=== PATIENT | male | born 1955 | race Caucasian/White ===

== ENCOUNTER 2016-11-14 08:33 | Day surgery (SDC) | payer OTHER ==
[2016-11-11 14:58] VITALS: BMI 30.7
[2016-11-14] MEDS ORDERED: PROPOFOL 20 ML ONE ×3 (09:18→09:40)
[2016-11-14 10:17] VITALS: TEMP 97.6
[2016-11-14 11:20] LABS: BASOPHIL 0.2 % (0-2.0); EOSINOPHIL 1.1 % (0-4.5); MCH 30.1 pg (25.7-33.7); MCHC 33.4 g/dl (32.0-35.9); MEAN PLT VOLUME 7.8 fl (7.5-11.1); NEUTROPHILS 75.6 % (42.8-82.8); PLATELET COUNT 153 K/MM3 (134-434); WHITE BLOOD COUNT 7.1 K/mm3 (4.0-10.0)
[2016-11-14 11:34] LABS: INR 1.17 (0.82-1.09); PROTHROMBIN TIME (PATIENT) 12.9 SEC (9.98-11.88)
[2016-11-14 11:40] VITALS: BP 133/87; PULSE 63
[2016-11-14 12:03] LABS: ALBUMIN 3.5 g/dl (3.4-5.0); ALK PHOS 80 U/L (45-117); ANION GAP 9 (8-16); BILIRUBIN,TOTAL 0.8 mg/dL (0.2-1.0); CALCIUM 8.9 mg/dL (8.5-10.1); CO2 29 mmol/L (21-32); CREATININE 1.1 mg/dL (0.7-1.3); GLUCOSE,RANDOM 107 mg/dL (74-106); SGOT/AST 25 U/L (15-37); SGPT/ALT 44 U/L (12-78); TOT PROT 6.7 g/dl (6.4-8.2)
[2016-11-14 12:05] LABS: FERRITIN 100.618 ng/ml (16.4-293.9)
[2016-11-15 06:11] LABS: SERUM IRON 57 ug/dL (38-169); TOTAL IRON BINDING CAPACITY 300 ug/dL (250-450); UIBC 243 ug/dL (111-343)
--- NOTE | 2016-11-15 13:23 | PATH ---
Surgical Pathology Report Patient Name: JENNIFER MENARD [facility]. Rec. #: [id number] /Age/Gender: 1955 (Age: 61) / M Account: [id number] Location: [facility]-ENDOSCOPY Taken: 11/14/2016 Received: 11/14/2016 Reported: 11/15/2016 Physicians: Nato Salas M.D. Specimen(s) Received A: BX 2ND PORTION DUODENUM & BULB B: BX ANTRUM C: BX DISTAL & MID ESOPHAGUS D: BX RECTAL POLYP E: DISTAL TRANSVERSE COLON POLYP Clinical History Screening Atypical gastritis, hiatal hernia, colon polyp, diverticulosis Final Diagnosis A. DUODENUM, SECOND PORTION AND BULB, BIOPSY: DUODENAL MUCOSA WITH NO PATHOLOGIC CHANGES. NO HISTOLOGIC EVIDENCE OF GLUTEN SENSITIVE ENTEROPATHY (CELIAC SPRUE) IDENTIFIED. B. STOMACH, ANTRUM, BIOPSY: MODERATE CHRONIC ACTIVE GASTRITIS. FOCAL INTESTINAL METAPLASIA IS PRESENT. NO DYSPLASIA IDENTIFIED. IMMUNOSTAIN FOR H. PYLORI IS POSITIVE (MODERATE NUMBERS OF ORGANISMS). C. MID ESOPHAGUS, BIOPSY: SQUAMOUS EPITHELIUM WITH PAPILLOMATOSIS SUGGESTIVE OF REFLUX ESOPHAGITIS. SCANT COLUMNAR EPITHELIUM PRESENT. NO INTESTINAL METAPLASIA IDENTIFIED (NO MALAVE'S IDENTIFIED). NO EOSINOPHILIC ESOPHAGITIS IDENTIFIED. D. COLON, RECTUM, BIOPSY: HYPERPLASTIC POLYP. E. COLON, DISTAL TRANSVERSE, BIOPSY: TUBULAR ADENOMA. Electronically Signed Brannon Rich M.D. Gross Description A. Received in formalin, labeled "biopsy second portion of duodenum and duodenal bulb" are 4 torres, irregular portions of soft tissue ranging from 0.1-0.3 cm. in greatest dimension. The specimens are submitted in toto in one cassette. B. Received in formalin, labeled "biopsy antrum" are 5 torres, irregular portions of soft tissue ranging from 0.1-0.5 cm. in greatest dimension. The specimens are submitted in toto in one cassette. C. Received in formalin, labeled "biopsy midesophagus" are 4 torres, irregular portions of soft tissue ranging from 0.2-0.4 cm. in greatest dimension. The specimens are submitted in toto in one cassette. D. Received in formalin, labeled "biopsy rectal polyp" are 2 torres, irregular portions of soft tissue measuring 0.1 and 0.3 cm. in greatest dimension. The specimens are submitted in toto in one cassette. E. Received in formalin, labeled "biopsy distal transverse colon polyp" is a torres, irregular portion of soft tissue measuring 0.3 cm. in greatest dimension. The specimen is submitted in toto in one cassette. 11/14/201611/14/2016
[2016-11-16 00:09] LABS: HEP B SURFACE AB Reactive (.)
[2016-11-16 08:07] LABS: ALPHA 2 MACROGLOBULINS,QN 181 mg/dL (110-276); BILIRUBIN TOTAL 0.5 mg/dL (0.0-1.2); FIBROSIS STAGE F0-F1 (.); GGT= 39 IU/L (0-65); GLUCOSE SERUM 107 mg/dL (65-99); HAPTOGLOBIN= 146 mg/dL (34-200); HEIGHT 66 Inches (.); TRIGLYCERIDES= 353 mg/dL (0-149)
== END 2016-11-14 11:40 | disposition home or self-care (01) ==
LOC: JASU-ENDO 08:33
PROVIDERS: ATTEND Internal Medicine Gastroenterology
PROC: 0DBP8ZX Excision of Rectum, Via Natural or Artificial Opening Endoscopic, Diagnostic (ICD-10-PCS; 2016-11-14)
PROC: 0DB38ZX Excision of Lower Esophagus, Via Natural or Artificial Opening Endoscopic, Diagnostic (ICD-10-PCS; 2016-11-14)
PROC: 0DB98ZX Excision of Duodenum, Via Natural or Artificial Opening Endoscopic, Diagnostic (ICD-10-PCS; 2016-11-14)
PROC: 0DB68ZX Excision of Stomach, Via Natural or Artificial Opening Endoscopic, Diagnostic (ICD-10-PCS; 2016-11-14)
PROC: 0DB28ZX Excision of Middle Esophagus, Via Natural or Artificial Opening Endoscopic, Diagnostic (ICD-10-PCS; 2016-11-14)
PROC: 0DBL8ZX Excision of Transverse Colon, Via Natural or Artificial Opening Endoscopic, Diagnostic (ICD-10-PCS; principal; 2016-11-14 09:00)
DX: Z12.11 Encounter for screening for malignant neoplasm of colon (principal); K62.1 Rectal polyp; D12.3 Benign neoplasm of transverse colon; K57.30 Diverticulosis of large intestine without perforation or abscess without bleeding; K64.8 Other hemorrhoids; K55.20 Angiodysplasia of colon without hemorrhage; Z85.118 Personal history of other malignant neoplasm of bronchus and lung; K21.9 Gastro-esophageal reflux disease without esophagitis; K44.9 Diaphragmatic hernia without obstruction or gangrene; K29.40 Chronic atrophic gastritis without bleeding
CPT/HCPCS: 36415; 80053; 82103; 82172; 82247; 82390; 82465; 82728; 82947; 82977; 83010; 83516; 83540; 83550; 83883; 84450; 84460; 84478; 85025; 85610; 86038; 86704; 86706; 86708; 86803; 87340; 88305-TC; 88342-TC

== ENCOUNTER 2022-07-25 06:00 | Day surgery (SDC) | payer OTHER ==
[2022-07-20 10:27] VITALS: BMI 30.7
[2022-07-25 09:51] VITALS: TEMP 98
[2022-07-25 10:37] VITALS: BP 123/89; PULSE 68; RESP 21
== END 2022-07-25 10:23 | disposition home or self-care (01) ==
LOC: JASU-ENDO 06:00
PROVIDERS: ATTEND Internal Medicine Gastroenterology
PROC: 0DBK8ZX Excision of Ascending Colon, Via Natural or Artificial Opening Endoscopic, Diagnostic (ICD-10-PCS; principal; 2022-07-25 10:00)
DX: Z12.11 Encounter for screening for malignant neoplasm of colon (principal); D12.2 Benign neoplasm of ascending colon; K57.30 Diverticulosis of large intestine without perforation or abscess without bleeding; Z86.010 Personal history of colon polyps
CPT/HCPCS: 88305-TC